=== PATIENT | female | born 1985 | race Caucasian/White ===

== ENCOUNTER 2019-09-10 13:04 | Emergency (ER) | payer MEDICAID, SELFPAY ==
--- NOTE | ~2019-09-10 | XR_ITS ---
EXAMINATION: XR finger 1st RT min 2V INDICATION: Right first finger swelling and pain. TECHNIQUE: Three views of the right first finger are obtained. COMPARISON: 07/17/2019 FINDINGS: No fracture is identified. There is subtle flexion at the interphalangeal joint with extens ion at the metacarpophalangeal joint. Mild soft tissue swelling is present. IMPRESSION: 1. Subtle flexion at the interphalangeal joint with extension at the metacarpophalangeal joint which could reflect tendinous injury. Reviewed, dictated and finalized at location [facility]. [address] [facility] IMPRESSION: 1. Subtle flexion at the interphalangeal joint with extension at the metacarpop halangeal joint which could reflect tendinous injury.
[2019-09-10 13:13] VITALS: BP 127/84; PULSE 79; RESP 16; TEMP 36.9; O2SAT 100
--- NOTE | 2019-09-10 13:43 | ED.EXTPRO ---
HPI - Extremity Problem General Chief complaint: Extremity Injury, Upper Stated complaint: INJURED R THUMB Time Seen by Provider: 09/10/19 13:34 Source: patient and RN notes reviewed Mode of arrival: ambulatory Limitations: no limitations History of Present Illness HPI Narrative: Patient presents today complaining of pain to her right thumb. States she believes that it is out of place. In June, she states that her thumb was dislocated and she was seen in [facility] where it was reduced. Subsequently, due to pain, she presented at [facility] on 07/22/2019. An x-ray was done at that time and patient was told that she had arthritis but no other acute abnormalities. 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 Patient complains that she has swelling on and off since the initial injury. Denies any current acute injury. Believes that she may need steroids for her current condition. She has been taking ibuprofen for pain without relief. MD Complaint: extremity pain and extremity swelling Related Data Home Medications Medication Instructions Recorded Confirmed acetaminophen [Tylenol] 325 mg PO ONCE PRN 09/10/19 09/10/19 ibuprofen 200 mg PO Q6H PRN 09/10/19 09/10/19 melatonin 10 mg PO HS PRN 09/10/19 09/10/19 Allergies Allergy/AdvReac Type Severity Reaction Status Date / Time doxycycline Allergy Mild Unknown Verified 09/10/19 13:23 clavulanic acid Allergy Unknown Headache Verified 09/10/19 13:23 sumatriptan AdvReac Mild SWEAT Verified 09/10/19 13:23 PROFUSELY AND FEEL LIKE HAVING A HEART ATTACK. amoxicillin [From Augmentin] AdvReac Headache Verified 09/10/19 13:23 BETALACTAMASEIN Allergy Mild Migraine Uncoded 09/10/19 13:23 Review of Systems Review of Systems: Narrative: CONSTITUTIONAL: Denies body aches, fever, chills, or sweats. EYES: Denies visual changes, redness, or discharge. ENT: Denies rhinorrhea, congestion, sore throat, or otalgia. CARDIOVASCULAR: Denies chest pain, palpitations, or edema. RESPIRATORY: Denies cough or dyspnea. GASTROINTESTINAL: Denies abdominal pain, nausea, vomiting, or diarrhea. GENITOURINARY: Denies dysuria or hematuria. SKIN: Denies rash, itching, or wounds. MUSCULOSKELETAL: Denies back pain, or myalgia.+ Right thumb pain and swelling NEUROLOGIC: Denies headache, numbness, tingling, or weakness. PSYCH: Denies depression or anxiety. PMFSH Comments At time of signature, I have reviewed and agree with nursing past medical, surgical, social and family history unless otherwise noted. Please see nursing chart for further information. There is no relevant family history pertinent to the presenting complaint Exam Narrative: Exam Narrative: GENERAL: Well-appearing, well-nourished, and in no acute distress. HEAD: Normocephalic, atraumatic. EYES: EOMI. No redness or drainage. ENT: Mucous membranes pink and moist. NECK: Normal AROM. CHEST: No respiratory distress. EXTREMITIES: Right thumb: No edema, erythema, or ecchymosis noted. Tenderness to base of thumb. Almost full AROM noted. States she is unable to fully extend her DIP, but it seems fully extended without being hyperextended. Distal sensation intact. Capillary refill normal. No abnormal warmth. SKIN: Warm, dry, no rash. NEURO: No focal deficits. Alert and oriented x3. Gait steady. PSYCH: Normal affect. No signs of depression or anxiety. Course Vital Signs Vital signs: Vital Signs Temperature 98.4 F 09/10/19 13:13 Pulse Rate 79 09/10/19 13:13 Respiratory Rate 16 09/10/19 13:13 Blood Pressure 127/84 09/10/19 13:13 Pulse Oximetry 100 09/10/19 13:13 Temperature 98.4 F 09/10/19 13:13 Pulse Rate 79 09/10/19 13:13 Respiratory Rate 16 09/10/19 13:13 Blood Pressure 127/84 09/10/19 13:13 Pulse Oximetry 100 09/10/19 13:13 Reviewed. Pt has been instructed to follow up with her PCP regarding her elevated blood pressu
== END 2019-09-10 14:13 | disposition home or self-care (01) ==
PROVIDERS: Emergency Provider Nurse Practitioner; PCP Internal Medicine
DX: M79.644 Pain in right finger(s) (principal); J45.909 Unspecified asthma, uncomplicated
CPT/HCPCS: 73140; 99213; G0463

== ENCOUNTER 2020-01-25 18:27 | Emergency (ER) | payer OTHER, SELFPAY ==
[2020-01-25 18:39] VITALS: BP 111/81; PULSE 81; RESP 20; TEMP 36.8; O2SAT 98
--- NOTE | 2020-01-25 19:20 | ED.GENADULT ---
HPI - General Adult General Chief complaint: Unspecified Stated complaint: LEG TREMORS Time Seen by Provider: 01/25/20 18:33 History of Present Illness HPI narrative: Patient is 34 y/o female complaining of severe, bilat leg shaking starting about 30 minutes prior to arrival. She states that she was cleaning the floor when the shaking started. She did not lose consciousness. There is no known alleviating or exacerbating factor. The shaking resolved spontaneously after about 10 minutes. Related Data Home Medications Medication Instructions Recorded Confirmed acetaminophen [Tylenol] 325 mg PO ONCE PRN 09/10/19 09/10/19 ibuprofen 200 mg PO Q6H PRN 09/10/19 09/10/19 melatonin 10 mg PO HS PRN 09/10/19 09/10/19 Allergies Allergy/AdvReac Type Severity Reaction Status Date / Time doxycycline Allergy Mild Unknown Verified 09/10/19 13:23 clavulanic acid Allergy Unknown Headache Verified 09/10/19 13:23 sumatriptan AdvReac Mild SWEAT Verified 09/10/19 13:23 PROFUSELY AND FEEL LIKE HAVING A HEART ATTACK. amoxicillin [From Augmentin] AdvReac Headache Verified 09/10/19 13:23 BETALACTAMASEIN Allergy Mild Migraine Uncoded 09/10/19 13:23 Review of Systems Constitutional: Constitutional: Denies chills, Denies fever(s), Denies headache(s) and Denies weakness Eyes: Eyes: Denies blurry vision ENT: Denies headache(s) and Denies neck pain Cardiovascular: Cardiovascular: Denies chest pain and Denies dyspnea Respiratory: Respiratory: Denies cough and Denies dyspnea Gastrointestinal: Gastrointestinal: Denies abdominal pain, Denies diarrhea, Denies nausea and Denies vomiting Genitourinary: Genitourinary: Denies hematuria and Denies dysuria Musculoskeletal: Musculoskeletal: Denies back pain and Denies neck pain Neurologic: Denies headache(s) and Denies weakness Comments: leg shaking PMFSH Past Medical History Medical History Anxiety Depression Social History Social History Gender identity (if verbalized by the patient): Female Exam Const: General: no acute distress and well developed Orientation/consciousness: oriented to person, oriented to place, oriented to time and patient oriented x3 HENMT: Head: normocephalic Ears: external ears normal General nose exam: Normal external nose present Eyes: General: appearance normal, both eyes and all related structures Conjunctivae: conjunctivae normal Neck: Neck: normal visual inspection and full ROM Chest: Chest palpation & inspection: normal inspection of the chest and no tenderness Resp: Effort & Inspection: normal respiratory effort Auscultation: clear to auscultation bilaterally Cardio: Rate: regular rate Rhythm: regular rhythm GI: GI Palp: No abdominal tenderness and Yes Soft to palpation Skin: General skin exam: normal color and turgor normal Neuro: General: oriented to person, oriented to place, oriented to time and patient oriented x3 Cranial nerves: Yes CN's II-XII intact bilaterally Cognition (Neuro): normal cognition Speech: normal speech Motor exam (neuro): 5/5 motor strength present throughout Sensory Exam: normal sensation Coordination: [id number] test normal and [id number] test normal Extrem: General: normal to inspection, full ROM and no pedal edema Psych: Appearance: grossly normal Mental Status: mental status grossly normal Affect: normal affect Course Vital Signs Vital signs: Vital Signs Temperature 36.8 C 01/25/20 18:39 Pulse Rate 81 01/25/20 18:39 Respiratory Rate 20 01/25/20 18:39 Blood Pressure 111/81 01/25/20 18:39 Pulse Oximetry 98 01/25/20 18:39 Temperature 36.8 C 01/25/20 18:39 Pulse Rate 62 01/25/20 20:12 Respiratory Rate 18 01/25/20 20:12 Blood Pressure 132/70 01/25/20 20:12 Pulse Oximetry 98 01/25/20 20:12 Medical Decision Making Vital Signs
[2020-01-25 19:31] LABS: Add Urine Microscopic? YES; Appearance Urine Cloudy (Clear); Bacteria Urine 4+ /hpf; Bilirubin Urine Negative (Negative); Blood Urine Negative (Negative); Color Urine Yellow (Yellow); Glucose Urine UA Negative (Negative); Ketones Urine Trace mg/dL (Negative); Leukocyte Esterase Ur Negative LEU/UL (Negative); Mucus Urine Heavy /lpf; Nitrate Urine Negative (Negative); Protein Urine 1+ mg/dL (Negative); Specific Grav Ur 1.027 (1.001-1.035); Squamous Epithelial Cell Urine Many /hpf (Few); Urobilinogen Urine Negative mg/dL (<2.0)
[2020-01-25 19:41] LABS: Basophils Absolute Auto 0.1 K/mm3 (0.0-0.1); Basophils Percent Auto 0.6 % (0.2-1.2); Eosinophils Absolute Auto 0.1 K/mm3 (0-0.3); Eosinophils Percent Auto 1.3 % (0-4.4); Hematocrit 34.9 % (37.0-47.0); Hemoglobin 10.8 g/dL (12.0-15.0); Immature Granulocyte Absolute 0.02 K/mm3 (0.00-0.031); Immature Granulocyte Percent A 0.3 % (0-0.5); Lymphocytes Absolute Auto 3.02 K/mm3 (0.9-3.2); Lymphocytes Percent Auto 38.3 % (18.3-44.2); Mean Corpuscular HGB Conc 30.9 g/dl (32-36); Mean Corpuscular Hemoglobin 24.9 pg (26-34); Mean Corpuscular Volume 80.6 fl (80-100); Mean Platelet Volume 10.6 fl (7.4-10.4); Monocytes Absolute Auto 0.8 K/mm3 (0.1-0.6); Monocytes Percent Auto 9.5 % (2.6-8.5); Platelet Count Result 254 k/mm3 (150-375); Red Blood Count 4.33 M/mm3 (4.2-5.4); Red Cell Distribution Width 14.1 % (11.5-14.5); White Blood Count 7.9 K/mm3 (4.5-10.0)
[2020-01-25 19:51] LABS: Blood Urea Nitrogen 12 mg/dL (7-17); Carbon Dioxide 23 mmol/L (22-30); Chloride 110 mmol/L (98-107); Estimated CRCL calculation 89 ml/min; Estimated Glomerular Filt Rate > 60; Glucose 108 mg/dL (65-105); Potassium 3.4 mmol/L (3.4-5.0); Sodium 140 mmol/L (137-145)
[2020-01-25 20:12] VITALS: BP 132/70; PULSE 62; RESP 18; O2SAT 98
== END 2020-01-25 20:13 | disposition home or self-care (01) ==
PROVIDERS: Emergency Provider Emergency Medicine; PCP Internal Medicine
DX: R25.1 Tremor, unspecified (principal)
CPT/HCPCS: 36415; 80048; 81001; 81025; 85025; 87086; 87088; 99283

== ENCOUNTER 2020-05-31 20:37 | Emergency (ER) | payer OTHER, SELFPAY ==
--- NOTE | ~2020-05-31 | XR_ITS ---
EXAMINATION: XR finger 1st RT min 2V DATE: 05/31/2020 21:38 INDICATION: Ringing fluid from a postoperative wound at the right first digit TECHNIQUE: Dorsal palmar, lateral and oblique views of the right first digit were obtained COMPARISON: 09/10/19 and 07/17/2019 FINDINGS: Alignment is normal. No fracture. Mild osteoarthritis with unchanged slight nonuniform joint space na rrowing at the right first metacarpophalangeal joint. Diffuse soft tissue swelling about the thumb. IMPRESSION: 1. No acute osseous abnormality. Reviewed, dictated and finalized at location A.
[2020-05-31 20:39] VITALS: BP 115/76; PULSE 87; RESP 17; TEMP 36.3; O2SAT 100
--- NOTE | 2020-05-31 21:02 | ED.RECABL ---
HPI - Recheck/Abnormal Lab/Rx General Chief Complaint: Recheck/Abnormal Lab/Rx <Sofi Sommer MD - Last Filed: 05/31/20 21:03> Stated Complaint: post surgery infection <Sofi Sommer MD - Last Filed: 05/31/20 21:03> Time Seen by Provider: 05/31/20 21:02 <Sofi Sommer MD - Last Filed: 05/31/20 21:03> History of Present Illness HPI narrative: Patient is a 34-year-old female who presents ER with dehiscence of the right thumb surgical site. Patient reports she had a trigger finger repair 4 weeks ago at [facility]. She had been doing well. Couple days ago she noticed her wound was trying to open up. She contacted her surgeon's office got back to her the day telling her they were not concerned at that time. She reports since then she started weeping a constant flow of yellowish and sometimes white fluid. Note thick fluid or green discharge. The affected thumb is slightly swollen. No erythema to the hand/thumb, no lymphangitic streaking. No pain in the joint. No fevers or chills or sweats. <Dain Andrews MD - Last Filed: 05/31/20 22:32> Related Data Home Medications: Home Medications Medication Instructions Recorded Confirmed albuterol sulfate [ProAir HFA] 1 - 2 inh INHALATION Q4-6H PRN 05/31/20 citalopram 20 mg PO DAILY 05/31/20 ibuprofen 600 mg PO Q6H PRN 05/31/20 melatonin 10 mg PO HS PRN 05/31/20 simvastatin 40 mg PO DAILY 05/31/20 trazodone 50 mg PO HS 05/31/20 <Sofi Sommer MD - Last Filed: 05/31/20 21:03> Allergies/Adverse Reactions: Allergies Allergy/AdvReac Type Severity Reaction Status Date / Time doxycycline Allergy Mild Unknown Verified 05/31/20 20:38 clavulanic acid Allergy Unknown Headache Verified 05/31/20 20:38 sumatriptan AdvReac Mild SWEAT Verified 05/31/20 20:38 PROFUSELY AND FEEL LIKE HAVING A HEART ATTACK. BETALACTAMASEIN Allergy Unknown Migraine Uncoded 05/31/20 21:08 <Sofi Sommer MD - Last Filed: 05/31/20 21:03> Review of Systems Review of Systems: All systems reviewed & are unremarkable except as noted in HPI and below <Dain Andrews MD - Last Filed: 05/31/20 22:32> Constitutional: Constitutional: Denies chills and Denies fever(s) <Dain Andrews MD - Last Filed: 05/31/20 22:32> Musculoskeletal: Musculoskeletal: Denies arthralgias and Denies joint swelling <Dain Andrews MD - Last Filed: 05/31/20 22:32> Comments: Right thumb swelling and wound drainage <Dain Andrews MD - Last Filed: 05/31/20 22:32> Integumentary/Breasts: Comments: Open skin wound right thumb base <Dain Andrews MD - Last Filed: 05/31/20 22:32> Neurologic: Denies focal weakness and Denies numbness <Dain Andrews MD - Last Filed: 05/31/20 22:32> PMFSH Past Medical History Medical History: Medical History (Updated 01/26/20 @ 00:00 by Vicky Montero) Anxiety Depression <Sofi Sommer MD - Last Filed: 05/31/20 21:03> Surgical History Surgical History: Surgical History (Updated 05/31/20 @ 22:25 by Dain Andrews MD) S/P trigger finger release <Sofi Sommer MD - Last Filed: 05/31/20 21:03> Social History Social History: Social History (Updated 05/31/20 @ 22:25 by Dain Andrews MD) Smoking status: Never smoker Gender identity (if verbalized by the patient): Female <Sofi Sommer MD - Last Filed: 05/31/20 21:03> Exam Narrative: Exam Narrative: GENERAL: Well-appearing, well-nourished, and in no acute distress. HEAD: Normocephalic, atraumatic. EXTREMITIES: Focused exam of the right hand reveals mildly s of the first MCP shows small area of wound dehiscence no larger than 1/2 cm. There is serous and occasionally milky fluid that is draining from it. There is no erythema or tenderness. Range of motion is preserved. SKIN: Warm, dry, no rash. NEURO: No focal deficits. Alert and oriented x3. PSYCH: Normal mood and affect. <An
[2020-05-31 22:01] LABS: Anion Gap 7 mmol/L (8-16); Blood Urea Nitrogen 10 mg/dL (7-17); CRP < 0.5 mg/dL (<1.0); Calcium 9.1 mg/dL (8.4-10.2); Carbon Dioxide 25 mmol/L (22-30); Chloride 107 mmol/L (98-107); Estimated CRCL calculation 64 ml/min; Estimated Glomerular Filt Rate > 60; Glucose 100 mg/dL (65-105); Potassium 3.9 mmol/L (3.4-5.0); Sodium 139 mmol/L (137-145)
[2020-05-31 22:04] LABS: Basophils Absolute Auto 0.1 K/mm3 (0.0-0.1); Basophils Percent Auto 0.5 % (0.2-1.2); Eosinophils Absolute Auto 0.1 K/mm3 (0-0.3); Eosinophils Percent Auto 0.9 % (0-4.4); Hematocrit 39.8 % (37.0-47.0); Hemoglobin 12.7 g/dL (12.0-15.0); Immature Granulocyte Absolute 0.03 K/mm3 (0.00-0.031); Immature Granulocyte Percent A 0.3 % (0-0.5); Lymphocytes Absolute Auto 3.04 K/mm3 (0.9-3.2); Lymphocytes Percent Auto 27.5 % (18.3-44.2); Mean Corpuscular HGB Conc 31.9 g/dl (32-36); Mean Corpuscular Hemoglobin 26.9 pg (26-34); Mean Corpuscular Volume 84.3 fl (80-100); Mean Platelet Volume 10.8 fl (7.4-10.4); Monocytes Absolute Auto 0.9 K/mm3 (0.1-0.6); Monocytes Percent Auto 8.3 % (2.6-8.5); Neutrophils Absolute Auto 6.9 K/mm3 (1.3-6.7); Neutrophils Percent Auto 62.5 % (45.5-73.1); Platelet Count Result 303 k/mm3 (150-375); Red Blood Count 4.72 M/mm3 (4.2-5.4); White Blood Count 11.1 K/mm3 (4.5-10.0)
[2020-05-31 22:46] LABS: Erythrocyte Sedimentation Rate 12 mm/hr (0-20)
--- NOTE | 2020-05-31 22:46 | ED.GENADULT ---
HPI - General Adult General Chief complaint: Recheck/Abnormal Lab/Rx Stated complaint: post surgery infection Time Seen by Provider: 05/31/20 21:02 History of Present Illness HPI narrative: Patient is a 34-year-old female who presents ER with dehiscence of right thumb wound. Patient had a surgery 4 [facility] ago at [facility] for [facility] finger. Couple days ago dehisced and then it has started draining yellow/white fluid. No fevers or chills. No redness to the thumb or lymphangitic streaking. The thumb is mildly swollen. She has range of motion intact. Related Data Home Medications Medication Instructions Recorded Confirmed albuterol sulfate [ProAir HFA] 1 - 2 inh INHALATION Q4-6H PRN 05/31/20 citalopram 20 mg PO DAILY 05/31/20 ibuprofen 600 mg PO Q6H PRN 05/31/20 melatonin 10 mg PO HS PRN 05/31/20 simvastatin 40 mg PO DAILY 05/31/20 trazodone 50 mg PO HS 05/31/20 Allergies Allergy/AdvReac Type Severity Reaction Status Date / Time doxycycline Allergy Mild Unknown Verified 05/31/20 20:38 clavulanic acid Allergy Unknown Headache Verified 05/31/20 20:38 sumatriptan AdvReac Mild SWEAT Verified 05/31/20 20:38 PROFUSELY AND FEEL LIKE HAVING A HEART ATTACK. BETALACTAMASEIN Allergy Unknown Migraine Uncoded 05/31/20 21:08 Review of Systems Constitutional: Constitutional: Denies chills and Denies fever(s) Musculoskeletal: Musculoskeletal: Denies arthralgias and Denies joint swelling Comments: Right thumb swelling Integumentary/Breasts: Skin/Breast: Denies erythema, Denies rash and Reports skin ulcer Neurologic: Denies focal weakness and Denies numbness PMFSH Past Medical History Medical History (Updated 05/31/20 @ 22:51 by Dain Andrews MD) Anxiety Depression Surgical History Surgical History (Updated 05/31/20 @ 22:25 by Dain Andrews MD) S/P trigger finger release Social History Social History (Updated 05/31/20 @ 22:25 by Dain Andrews MD) Smoking status: Never smoker Gender identity (if verbalized by the patient): Female Exam Narrative: Exam Narrative: GENERAL: Well-appearing, well-nourished, and in no acute distress. HEAD: Normocephalic, atraumatic. EXTREMITIES: Focused exam of the right hand reveals dehisced wound of the right thumb at the MCP palmar aspect that is no larger than half a centimeter. Yellow-white watery discharge can be expressed. Mild swelling to the thumb. No cellulitis or lymphangitic streaking. No tenderness. Range of motion intact. SKIN: Warm, dry, no rash. Wound as noted above. NEURO: No focal deficits. Alert and oriented x3. PSYCH: Normal mood and affect. Course Course Emergency Course: Informed of results. Discharge home. Will start on Keflex. Needs contact her surgeon to arrange close follow-up. Vital Signs Vital signs: Vital Signs Temperature 97.3 F L 05/31/20 20:39 Pulse Rate 87 05/31/20 20:39 Respiratory Rate 17 05/31/20 20:39 Blood Pressure 115/76 05/31/20 20:39 Pulse Oximetry 100 05/31/20 20:39 Temperature 97.3 F L 05/31/20 20:39 Pulse Rate 87 05/31/20 20:39 Respiratory Rate 17 05/31/20 20:39 Blood Pressure 115/76 05/31/20 20:39 Pulse Oximetry 100 05/31/20 20:39 Medical Decision Making Vital Signs Vital Signs: Vital Signs Temperature 97.3 F L 05/31/20 20:39 Pulse Rate 87 05/31/20 20:39 Respiratory Rate 17 05/31/20 20:39 Blood Pressure 115/76 05/31/20 20:39 Pulse Oximetry 100 05/31/20 20:39 Temperature 97.3 F L 05/31/20 20:39 Pulse Rate 87 05/31/20 20:39 Respiratory Rate 17 05/31/20 20:39 Blood Pressure 115/76 05/31/20 20:39 Pulse Oximetry 100 05/31/20 20:39 Lab Data Result diagrams: 05/31/20 21:40 05/31/20 21:40 Labs: Lab Results 05/31/20 05/31/20 Range/Units 21:40 21:40 WBC 11.1 H (4.5-10.0) K/mm3 RBC 4.72 (4.2-5.4) M/mm3 Hgb 12.7 (12.0-15.0) g/dL Hct 39.8 (37.0-47.0)
[2020-05-31] MEDS: CEPHALEXIN 500 MG CAPSULE PO (22:52)
[2020-05-31 23:00] VITALS: BP 111/69; PULSE 87; RESP 16; TEMP 36.4; O2SAT 100
== END 2020-05-31 23:02 | disposition home or self-care (01) ==
PROVIDERS: Emergency Medicine; Emergency Provider Emergency Medicine; PCP Internal Medicine
DX: T81.31XA Disruption of external operation (surgical) wound, not elsewhere classified, initial encounter (principal); T81.41XA Infection following a procedure, superficial incisional surgical site, initial encounter; F41.9 Anxiety disorder, unspecified; F32.9 Major depressive disorder, single episode, unspecified
CPT/HCPCS: 36415; 73140; 80048; 85025; 85652; 86140; 87070; 87147; 87186; 87205; 99283; A9270

== ENCOUNTER 2021-11-24 15:05 | Emergency (ER) | payer OTHER, SELFPAY ==
--- NOTE | ~2021-11-24 | CT_ITS ---
EXAMINATION: CT abdomen pelvis w con DATE: 11/24/2021 16:32 INDICATION: lower abdominal pain, possible obstruction TECHNIQUE: Computed tomography (CT) of the abdomen and pelvis was performed without intravenous contr ast. The dose-length product was 232.63 mGy-cm. COMPARISON: None FINDINGS: Lower thorax: Unremarkable. Liver: Right lobe cyst/meningioma. Biliary/Gallbladder: Gallbladder is absent. Mild biliary dilation, likely on the basis of reservoir e ffect. Spleen: Normal. Pancreas: No mass or duct dilation. Adrenals:No mass. Kidneys: No mass, stone, or hydronephrosis. GI tract: Chronic fat density wall thickening involving the cecum, ascending colon, and transverse co emmy. Water density wall thickening affecting the descending colon, sigmoid, and rectum. Appendix surg ically absent Mesentery/Peritoneum: No ascites, mass, or free air. Retroperitoneum: No mass. Pelvis: Abnormal morphology of the endometrial cavity with apparent bandlike constriction of the cavi ty between the uterine horns and body, otherwise the organs are within normal limits. Bones/Soft Tissues: Soft tissues and body wall unremarkable. No acute osseous finding. Additional Findings: None. IMPRESSION: Acute inflammatory versus infectious colitis. Given extensive chronic submucosal fat deposition, infl ammatory bowel disease should be considered in the differential. Possible uterine synechia, consider referral for outpatient pelvic sonohysterography. Reviewed, dictated and finalized at location K. IMPRESSION: Acute inflammatory versus infectious colitis. Given extensive chronic submucosa l fat deposition, inflammatory bowel disease should be considered in the differ ential. Possible uterine synechia, consider referral for outpatient pelvic sono hysterography.
[2021-11-24 15:08] VITALS: BP 124/81; PULSE 89; RESP 20; TEMP 35.9; O2SAT 100
--- NOTE | 2021-11-24 15:27 | ED.ABDPAIN ---
HPI - Abdominal Pain General Chief Complaint: Abdominal Pain Stated Complaint: abd pain Time Seen by Provider: 11/24/21 15:12 Source: patient and RN notes reviewed Mode of arrival: ambulatory Limitations: no limitations History of Present Illness HPI narrative: This is a 36 year old female who presents for evaluation of abdominal pain and constipation. Patient developed lower abdominal pain 2 days ago. She describes pain has cramping in waves. She is concerned she has partial obstruction. She has not had a bowel movement in 1 week, and she normal has bowel movement every other day. She tooks 4 tabs of dulcolax yesterday, and she is passing small out of loose stool today. She has nausea but denies vomiting or fever. She rates pain as 7/10. Related Data Home Medications Medication Instructions Recorded Confirmed albuterol sulfate [ProAir HFA] 1 - 2 inh INHALATION Q4-6H PRN 05/31/20 citalopram 20 mg PO DAILY 05/31/20 ibuprofen 600 mg PO Q6H PRN 05/31/20 melatonin 10 mg PO HS PRN 05/31/20 simvastatin 40 mg PO DAILY 05/31/20 trazodone 50 mg PO HS 05/31/20 Allergies Allergy/AdvReac Type Severity Reaction Status Date / Time doxycycline Allergy Mild Unknown Verified 11/24/21 15:16 clavulanic acid Allergy Unknown Headache Verified 11/24/21 15:16 sumatriptan AdvReac Mild SWEAT Verified 11/24/21 15:16 PROFUSELY AND FEEL LIKE HAVING A HEART ATTACK. BETALACTAMASEIN Allergy Unknown Migraine Uncoded 11/24/21 15:16 Review of Systems Review of Systems: All systems reviewed & are unremarkable except as noted in HPI and below PMFSH Past Medical History Medical History (Updated 11/24/21 @ 18:05 by Kelly Clark MD) Anxiety Depression Surgical History Surgical History (Updated 11/24/21 @ 15:38 by Kelly Clark MD) H/O bilateral salpingectomy History of appendectomy Hx of cholecystectomy S/P trigger finger release Social History Social History (Updated 05/31/20 @ 22:25 by Dain Andrews MD) Smoking status: Never smoker Gender identity (if verbalized by the patient): Female Exam Const: General: no acute distress and alert Orientation/consciousness: patient oriented x3 Eyes: EOM: EOMs intact bilaterally Chest: Chest palpation & inspection: normal inspection of the chest Resp: Effort & Inspection: normal respiratory effort and no retractions Auscultation: clear to auscultation bilaterally Cardio: Rate: regular rate Rhythm: regular rhythm Heart sounds: no murmurs GI: GI Palp: Yes Soft to palpation, Yes Tenderness to palpation present (GI) (suprapubic), No Guarding due to palpation present (GI) and No Rigid due to palpation Auscultation: normal bowel sounds Back/Spine/Pelvis: Back: no CVA tenderness Skin: General skin exam: normal color Rashes: no rashes Neuro: General: patient oriented x3, moves all extremities and CN's II-XI intact bilaterally Extrem: General: normal to inspection Psych: Mental Status: mental status grossly normal Affect: normal affect Course Reevaluation(s) Reevaluation #1: Patient is comfortable. She reports being told she has IBS but never IBD. I Discussed CT shows colitis and she will need evaluation of inflammatory bowel disease. She is comfortable with discharge home and follow up . Date: 11/24/21 Time: 18:00 Vital Signs Vital signs: Vital Signs Temperature 96.7 F L 11/24/21 15:08 Pulse Rate 89 11/24/21 15:08 Respiratory Rate 20 11/24/21 15:08 Blood Pressure 124/81 11/24/21 15:08 Pulse Oximetry 100 11/24/21 15:08 Temperature 96.7 F L 11/24/21 15:08 Pulse Rate 78 11/24/21 18:16 Respiratory Rate 18 11/24/21 18:16 Blood Pressure 125/70 11/24/21 18:16 Pulse Oximetry 100 11/24/21 18:16 MDM - Abdominal Pain Lab Data Attestation: I reviewed the patient's lab results. Result diagrams: 11/24/21 15:39 11/24/21 15:39 Labs: Lab Results 11/24/21
[2021-11-24 15:45] LABS: Basophils Percent Auto 0.5 % (0.2-1.2); Eosinophils Absolute Auto 0.1 K/mm3 (0-0.3); Eosinophils Percent Auto 1.8 % (0-4.4); Hematocrit 47.5 % (37.0-47.0); Hemoglobin 15.3 g/dL (12.0-15.0); Immature Granulocyte Absolute 0.01 K/mm3 (0.00-0.031); Immature Granulocyte Percent A 0.2 % (0-0.5); Lymphocytes Absolute Auto 2.88 K/mm3 (0.9-3.2); Mean Corpuscular HGB Conc 32.2 g/dl (32-36); Mean Corpuscular Hemoglobin 31.1 pg (26-34); Mean Corpuscular Volume 96.5 fl (80-100); Monocytes Absolute Auto 0.7 K/mm3 (0.1-0.6); Monocytes Percent Auto 10.5 % (2.6-8.5); Neutrophils Absolute Auto 2.8 K/mm3 (1.3-6.7); Platelet Count Result 240 k/mm3 (150-375); Red Blood Count 4.92 M/mm3 (4.2-5.4); Red Cell Distribution Width 11.9 % (11.5-14.5); White Blood Count 6.6 K/mm3 (4.5-10.0)
[2021-11-24 15:55] LABS: Alanine Aminotransferase 101 U/L (4-35); Albumin Level 4.4 g/dL (3.5-5.1); Alkaline Phosphatase 129 U/L (38-126); Anion Gap 10 mmol/L (8-16); Aspartate Amino Transferase 43 U/L (14-36); Bilirubin,Total 0.5 mg/dL (0.2-1.3); Blood Urea Nitrogen 8 mg/dL (7-17); Carbon Dioxide 26 mmol/L (22-30); Chloride 103 mmol/L (98-107); Estimated CRCL calculation 118 ml/min; Estimated Glomerular Filt Rate > 60; Glucose 93 mg/dL (65-110); Lipase 63 U/L (23-300); Potassium 3.2 mmol/L (3.4-5.0); Sodium 139 mmol/L (137-145)
[2021-11-24 16:02] LABS: Appearance Urine Clear (Clear); Bilirubin Urine Negative (Negative); Blood Urine 1+ (Negative); Color Urine Yellow (Yellow); Glucose Urine UA Negative (Negative); Ketones Urine 1+ mg/dL (Negative); Leukocyte Esterase Ur Negative LEU/UL (Negative); Nitrate Urine Negative (Negative); Protein Urine Negative (Negative); Specific Grav Ur 1.015 (1.001-1.035); Urobilinogen Urine 0.2 mg/dL (<2.0)
[2021-11-24 16:18] LABS: Bacteria Urine Trace /hpf; Mucus Urine Rare /lpf; Squamous Epithelial Cell Urine Rare /hpf (Few); WBC Urine 0-3 /hpf
[2021-11-24 16:23] LABS: Add Urine Microscopic? YES
[2021-11-24 18:16] VITALS: BP 125/70; PULSE 78; RESP 18; O2SAT 100
== END 2021-11-24 18:18 | disposition home or self-care (01) ==
PROVIDERS: Emergency Provider General Practice; PCP Internal Medicine
DX: K52.9 Noninfective gastroenteritis and colitis, unspecified (principal); F41.9 Anxiety disorder, unspecified; F32.A Depression, unspecified
CPT/HCPCS: 36415; 74177; 80053; 81001; 81025; 83690; 85025; 99284; Q9967

== ENCOUNTER 2022-01-04 09:16 | Outpatient (CLI) | payer OTHER, SELFPAY ==
[2022-01-04 09:47] LABS: Hematocrit 44.6 % (37.0-47.0); Hemoglobin 14.6 g/dL (12.0-15.0); Mean Corpuscular HGB Conc 32.7 g/dl (32-36); Mean Corpuscular Hemoglobin 31.3 pg (26-34); Mean Corpuscular Volume 95.5 fl (80-100); Platelet Count Result 215 k/mm3 (150-375); Red Blood Count 4.67 M/mm3 (4.2-5.4); Red Cell Distribution Width 11.8 % (11.5-14.5); White Blood Count 6.5 K/mm3 (4.5-10.0)
== END 2022-01-04 09:17 | disposition home or self-care (01) ==
LOC: ANHSURGERY 09:19
PROVIDERS: PCP Internal Medicine; Visit Provider Student in an Organized Health Care Education/Training Program
DX: Z01.812 Encounter for preprocedural laboratory examination (principal); R10.2 Pelvic and perineal pain
CPT/HCPCS: 36415; 85027; 86850; 86900; 86901

== ENCOUNTER 2022-01-06 00:57 | Day surgery (SDC) | payer OTHER, SELFPAY ==
[2022-01-03 08:42] VITALS: BMI 23.3
--- NOTE | 2022-01-03 09:12 | SUR.PREOP ---
Report to the Outpatient Waiting Room, entrance under the green pavilion located off [facility], at time on date . OR Time: . - You and your visitor will be asked a series of questions to screen for COVID 19 for your protection. - Only one visitor is allowed at this time. - The patient visitor is requested to leave or wait in car when not with patient. - A mask is required within the hospital. Patients may have clear liquids (water, carbonated beverages, clear teas, apple juice) until 3 hours prior to surgery with a maximum of 20 ounces. - No food from midnight until time of surgery - Infants may have breast milk until 4 hours before surgery, infant formula 6 hours prior to surgery. - Children will be allowed to drink immediately following surgery. If applicable, please bring a bottle or sippy cup to assist with drinking. Juice, water, soda, and popsicles are readily available. For infants on formula, please bring formula the day of surgery. Pacifiers are allowed. Take the following medications with a SIP of water the morning of surgery: Medications to discontinue per physician Date to take last dose Please no make-up, nail sami, hairspray, perfume, deodorant, or body powder the day of surgery. No jewelry (including any body piercings) or valuables the day of surgery, leave them at home. Please take a shower or bath the night before, or the morning of, surgery with an antibacterial soap. Wear comfortable, loose fitting clothing. Children are encouraged to wear pajamas. - Jewelry must be removed prior to entering the operating room. Rings and piercings that are not removed may be cut off. - The hospital will not accept responsibility for valuables. - Please leave all valuables, including medications, at home the day of surgery. If you are going home after surgery, a licensed train driver must drive you home. - NO public transportation without another adult. - We recommend that an adult stay with you for 24 hours following discharge. - We also recommend that you do not drive, make important decision, drink alcoholic beverages, or take any drugs that were not prescribed by your health care provider for at least 24 hours after your discharge time. For Pediatric surgeries, we recommend two adults accompany the child home (only one inside the building at this time). Follow any additional instructions given to you from your surgeon. If you or anyone in your household have experienced Covid symptoms in the past week, please notify your surgeon or the nurse liaison at the phone number below for possible testing. Telephone instructions given to and asked if any additional questions and then verbalized understanding. Patient advised to call surgeon office or pre surgery nurse liaison [phone] if any additional questions.
--- NOTE | 2022-01-03 09:12 | SUR.PREOP ---
Report to the Outpatient Waiting Room, entrance under the green pavilion located off [facility], at time __1000____ on date _01/06/22_ OR Time: _1200 . - You and your visitor will be asked a series of questions to screen for COVID 19 for your protection. - Only one visitor is allowed at this time. - The patient visitor is requested to leave or wait in car when not with patient. - A mask is required within the hospital. Patients may have clear liquids (water, carbonated beverages, clear teas, apple juice) until 3 hours prior to surgery with a maximum of 20 ounces. - No food from midnight until time of surgery - Infants may have breast milk until 4 hours before surgery, formula 6 hours prior to surgery. - Children will be allowed to drink immediately following surgery. If applicable, please bring a bottle or sippy cup to assist with drinking. Juice, water, soda, and popsicles are readily available. For infants on formula, please bring formula the day of surgery. Pacifiers are allowed. Take the following medications with a SIP of water the morning of surgery: Medications to discontinue per physician Date to take last dose Please no make-up, nail kinyarwanda, hairspray, perfume, deodorant, or body powder the day of surgery. No jewelry (including any body piercings) or valuables the day of surgery, leave them at home. Please take a shower or bath the night before, or the morning of, surgery with an antibacterial soap. Wear comfortable, loose fitting clothing. Children are encouraged to wear pajamas. - Jewelry must be removed prior to entering the operating room. Rings and piercings that are not removed may be cut off. - The hospital will not accept responsibility for valuables. - Please leave all valuables, including medications, at home the day of surgery. If you are going home after surgery, a licensed port cdl a driver must drive you home. - NO public transportation without another adult. - We recommend that an adult stay with you for 24 hours following discharge. - We also recommend that you do not drive, make important decision, drink alcoholic beverages, or take any drugs that were not prescribed by your health care provider for at least 24 hours after your discharge time. For Pediatric surgeries, we recommend two adults accompany the child home (only one inside the building at this time). Follow any additional instructions given to you from your surgeon. If you or anyone in your household have experienced Covid symptoms in the past week, please notify your surgeon or the nurse liaison at the phone number below for possible testing. Telephone instructions given to _patient and asked if any additional questions and then verbalized understanding. Patient advised to call surgeon office or pre surgery nurse liaison [phone] if any additional questions.
--- NOTE | 2022-01-05 19:47 | PM.IMHP ---
H&P: HPI History of Present Illness Date/Time: 01/05/22 19:47 Chief Complaint: pelvic pain Narrative: 36 yo who presents for robotic assisted hysterectomy for pelvic pain. Pt previously dealt with heavy painful menses. She underwent endometrial ablation in 2018. She started having painful pelvic cramping. Pt presented to the ER for worsening abdominal pain. She was treated for suspected colitis with antibiotics. CT scan revealed and abnormal appearance of the uterus. There appeared to be fluid collections within the uterus suspecting hematometria. Pt has previously undergone left salpingo-oophorectomy due to ectopic and pelvic pain from pelvic adhesions. Review of Systems Cardiovascular: Cardiovascular: Denies chest pain, Denies leg edema, Denies palpitations, Denies dyspnea and Denies dyspnea on exertion Respiratory: Respiratory: Denies cough, Denies dyspnea and Denies dyspnea on exertion Gastrointestinal: Gastrointestinal: Denies abdominal pain, Denies constipation, Denies diarrhea, Denies nausea and Denies vomiting Genitourinary: Genitourinary: Denies hematuria, Denies urinary frequency, Denies dysuria, Denies pelvic pain, Denies urinary incontinence and Denies vaginal discharge Neurologic: Reports system reviewed and no additional complaints, except as documented Psychiatric: Psychiatric: Reports no additional psychiatric complaints Endocrine: Endocrine: Denies palpitations PMFSH Past Medical History Medical History (Updated 01/05/22 @ 19:56 by Raymond George MD) Abnormal bowel habits Anxiety Depression Diarrhea Surgical History Surgical History H/O bilateral salpingectomy History of appendectomy Hx of cholecystectomy S/P trigger finger release Social History Social History Smoking packs per day: 0.5 Smoking cigarettes per day: 10.0 Years smoked: 12 Smoking pack-years: 6.00 Smoking status: Current every day smoker Tobacco type: cigarettes Alcohol intake: current Alcohol use details: social Substance use: never Gender identity (if verbalized by the patient): Female Spiritual care concerns: No Meds Home Medications and Allergies Home Medications Medication Instructions Recorded Confirmed Type albuterol sulfate 90 mcg/actuation 1 - 2 inh inhalation Q4-6H PRN 05/31/20 01/03/22 History aerosol inhaler (ProAir HFA) Shortness Of Breath Or Wheezing ibuprofen 200 mg tablet 600 mg PO Q6H PRN Pain 05/31/20 01/03/22 History melatonin 10 mg tablet 10 mg PO HS PRN Sleep 05/31/20 01/03/22 History simvastatin 40 mg tablet 40 mg PO DAILY 05/31/20 01/03/22 History trazodone 50 mg tablet 50 mg PO HS 05/31/20 01/03/22 History famotidine 40 mg tablet (Pepcid) 40 mg PO DAILY 12/28/21 01/03/22 History fremanezumab-vfrm 225 mg/1.5 mL 225 mg subcut MONTHLY 12/28/21 01/03/22 History subcutaneous auto-injector (Ajovy) hydroxyzine HCl 25 mg tablet 25 mg PO DAILY PRN Sleep 12/28/21 01/03/22 History bupropion HCl 150 mg 24 hr tablet, 150 mg PO HS 01/03/22 01/03/22 History extended release Allergies Allergy/AdvReac Type Severity Reaction Status Date / Time doxycycline Allergy Mild Unknown Verified 12/28/21 13:00 clavulanic acid Allergy Unknown Headache Verified 12/28/21 13:00 Cephalosporins Allergy Hives Verified 01/03/22 08:57 sumatriptan AdvReac Mild SWEAT Verified 12/28/21 13:00 PROFUSELY AND FEEL LIKE HAVING A HEART ATTACK. Exam Const: General: no acute distress Eyes: EOM: EOMs intact bilaterally Neck: Neck: supple Thyroid: thyroid normal Chest: Breast/axilla inspection: normal inspection of the breasts Breast/axilla palpation: normal palpation of the breasts, normal palpation of the axillae and no axillary lymphadenopathy Resp: Effort & Inspection: normal respiratory effort Auscultation: clear to auscultation
--- NOTE | 2022-01-05 19:59 | WPDHPUPDATE1 ---
History and Physical Update Update Date/Time: 01/05/22 19:59 History and Physical has been reviewed, including an updated exam of the patient. There are NO changes in the patient's condition. Risks, benefits, and alternatives have been discussed and questions answered. Patient agrees to proceed with procedure.
[2022-01-06] VITALS (9 sets, daily range): BP systolic 110–135; BP diastolic 68–84; PULSE 68–87; RESP 14–20; TEMP 36.1–36.2; O2SAT 99–100
[2022-01-06] MEDS: ACETAMINOPHEN 500 MG TABLET 1000 MG PO (10:23)
[2022-01-06] MEDS: LACTATED RINGERS 1,000 ML 30 ML IV CONT ×2 (10:50→14:04)
[2022-01-06] MEDS: KETOROLAC 15 MG/ML VIAL (*BKC) IV PUSH (10:51)
--- NOTE | 2022-01-06 11:25 | WPDANESEPPF ---
Anes - Initial Pre Proc Eval Procedure: Operation Date: 01/06/22 12:00 Proposed Procedures p Robotic Assisted Total Laparoscopic Hysterectomy - Raymond George MD Date/Time: 01/06/22 11:25 Surgeon: Raymond George MD Pre Op Diagnosis: pelvic pain , dysmenorrhea Patient Data Age: 36 Gender: F Height: 1.65 m Weight: 63.3 kg Last Vital Signs Temp 36.1 C L 01/06/22 10:29 Pulse 81 01/06/22 10:29 Resp 16 01/06/22 10:29 BP 110/69 01/06/22 10:29 Pulse Ox 99 01/06/22 10:29 O2 Del Method Room Air 01/06/22 10:29 Allergies Allergy/AdvReac Type Severity Reaction Status Date / Time doxycycline Allergy Mild Unknown Verified 01/06/22 10:16 clavulanic acid Allergy Unknown Headache Verified 01/06/22 10:16 Cephalosporins Allergy Hives Verified 01/06/22 10:16 sumatriptan AdvReac Mild SWEAT Verified 01/06/22 10:16 PROFUSELY AND FEEL LIKE HAVING A HEART ATTACK. Home Medications Medication Instructions Recorded Confirmed Type albuterol sulfate 90 mcg/actuation 1 - 2 inh inhalation Q4-6H PRN 05/31/20 01/03/22 History aerosol inhaler (ProAir HFA) Shortness Of Breath Or Wheezing ibuprofen 200 mg tablet 600 mg PO Q6H PRN Pain 05/31/20 01/06/22 History melatonin 10 mg tablet 10 mg PO HS PRN Sleep 05/31/20 01/06/22 History simvastatin 40 mg tablet 40 mg PO DAILY 05/31/20 01/06/22 History trazodone 50 mg tablet 50 mg PO HS 05/31/20 01/06/22 History famotidine 40 mg tablet (Pepcid) 40 mg PO DAILY 12/28/21 01/06/22 History fremanezumab-vfrm 225 mg/1.5 mL 225 mg subcut MONTHLY 12/28/21 01/06/22 History subcutaneous auto-injector (Ajovy) hydroxyzine HCl 25 mg tablet 25 mg PO DAILY PRN Sleep 12/28/21 01/06/22 History bupropion HCl 150 mg 24 hr tablet, 150 mg PO HS 01/03/22 01/06/22 History extended release Patient hx anesthesia problems: none Family hx anesthesia problems: none Results Review: All pre-operative results and documents have been reviewed as part of the pre-operative evaluation. FORMERLY [facility] Past Medical History Medical History Abnormal bowel habits Anxiety Depression Diarrhea Surgical History Surgical History H/O bilateral salpingectomy History of appendectomy Hx of cholecystectomy S/P trigger finger release Social History Social History Smoking packs per day: 0.5 Smoking cigarettes per day: 10.0 Years smoked: 12 Smoking pack-years: 6.00 Smoking status: Current every day smoker Tobacco type: cigarettes Alcohol intake: current Alcohol use details: social Substance use: never Living arrangements: with family Gender identity (if verbalized by the patient): Female Spiritual care concerns: No Anes - Eval Final PreProcedure Day of Procedure 01/06/22 11:25 Patient weight: normal Heart: regular rate and rhythm Lungs: clear to auscultation Airway: Mallampati scale class II Neurological: alert and oriented Last oral intake: >/= 8 hours ASA classification: III Emergent: yes Anesthetic plan: proceed Anesthesia type and monitoring: general ETT and standard monitoring Results Review: All pre-operative results and documents have been reviewed as part of the pre-operative evaluation. Informed Consent: The patient's anesthetic plan and its attendant risks and benefits were discussed with the patient/family/POA. Questions were solicited and answers provided to the satisfaction of the patient/family/POA.
[2022-01-06] MEDS: CLINDAMYCIN 900 MG/D5W 50 ML 900 MG/50 ML PIGGYBACK 50 MG IVPB (12:26)
[2022-01-06] MEDS: LIDO 1%/EPINEPHRINE/PF 1:200,000 30 ML VIAL INFILTRATE (13:06)
--- NOTE | 2022-01-06 13:52 | W.PM.PROC2 ---
Procedure Note - Detailed Date of Procedure 01/06/22 Pre-op Diagnosis pelvic pain Post-op Diagnosis Same Procedure Performed robotic assisted total laparoscopic hysterectomy 15 minutes of lysis of adhesions Surgeon Raymond George MD Anesthesia General Indications pelvic pain s/p endometrial ablation Findings bilateral fallopian tubes surgically absent, left ovary surgically absent. Normal appearing uterus and right ovary. Omental adhesions of the large bowel to the left pelvic side wall Description of Procedure After the patient was appropriately consented she was taken to the operating room where she was transferred to the table in a dorsal supine position. General anesthesia was then induced with endotracheal intubation. The patient was transferred to a dorsal lithotomy position using adjustable yellow-fin stirrups. Her position was adjusted for appropriate support of her lower back and lower extremities. The patient was prepped and draped. A transurethral carballo catheter was place. The cervix was sequentially dilated and a MIHIR uterine manipulator placed in typical fashion about a 3cm KARTHIKEYAN ring. Gloves were changed. After confirmation of a functioning orogastric tube, lidocaine was injected at Escalona's point in the LUQ and a 8mm incision was made. A 5mm Optiview trocar was then inserted into the abdominal cavity under direct visualization and done so without complication. The abdomen was then insufflated with approximately 2-3L of CO2 establishing a pneumoperitoneum and the patient was placed in Trendelenburg position. Just above the umbilicus in the midline, a 8 mm incision made after injection of lidocaine and a 8 mm bladeless trocar advanced into the abdominal cavity under direct visualization without incident. We subsequently placed two robotic ports in a similar fashion, one in the left mid-quadrant and one in the right, 10cm lateral to the midline port. The robot was then docked. Pelvic survey was performed and the above findings were noted. The omental adhesions were taken down with monopolar scissors to visualize the left ovarian fossa and round ligament. Attention was turned to the left pelvis. The left utero-ovarian ligament was desiccated and transected, as was the round ligament. The posterior peritoneal leaf was taken down to the KARTHIKEYAN ring. The anterior leaf was developed as well as the start of the bladder flap. The left uterine artery was then skeletonized and desiccated and transected just above the level of the KARTHIKEYAN ring. Attention was turned to the right pelvis. The right round ligament was transected toward the uterus sparing the ovary. The utero-ovarian ligament was desiccated and transected. The posterior peritoneal leaf was taken down to the KARTHIKEYAN ring. The anterior leaf was developed as well as the start of the bladder flap. The right uterine artery was then skeletonized and desiccated and transected just above the level of the KARTHIKEYAN ring. The bladder was then further dissected inferiorly over the level of the KARTHIKEYAN ring. A circumferential colpotomy was made using monopolar current. The uterus, cervix, bilateral tubes were then delivered transvaginally. I then placed a single figure of eight suture of 0-vicryl in the left corner of the vaginal cuff. I then re-approximated the colpotomy with a running #1 PDO Quill suture in 2 layers. Following this dissection, the abdomen and pelvis were copiously irrigated and all surgical sites found to be hemostatic. Skin sites were reapproximated with 4-0 Vicryl in a subcuticular fashion. Steri-Strips were placed. The patient tolerated the procedure well. Sponge, needle and instrument counts were correct x 2 and the patient was taken to recovery in stable condition. Clindamycin and Gentamicin were given for antimicrobial prophylaxis. The patient had SCD's on for VTE prophylaxis during the entire procedure. Estimated Blood Loss 50 Pathology Yes (cervix and uterus) Condition Stable Disposition
[2022-01-06] MEDS: ONDANSETRON INJ 4 MG/2 ML VIAL IV PUSH (14:27)
[2022-01-06] MEDS: fentaNYL CITRATE INJ (*CRX) 100 MCG/2 ML VIAL 25 MCG IV PUSH ×5 (14:28→15:48)
[2022-01-06] MEDS: SCOPOLAMINE 1.5 MG PATCH TRANSDERM (15:12)
[2022-01-06] MEDS: diphenhydrAMINE HCl INJ 50 MG/ML VIAL 25 MG IV PUSH (15:12)
[2022-01-06] MEDS: oxyCODONE HCL (*CRX) 5 MG TAB IR PO (15:48)
--- NOTE | 2022-01-06 17:21 | SUR.PHASEII ---
PT URINATED WITHOUT ISSUE AT 1510. PT WAS DISCHARGED HOME WITH .
== END 2022-01-06 16:10 | disposition home or self-care (01) ==
PROVIDERS: PCP Internal Medicine; Visit Provider Student in an Organized Health Care Education/Training Program
PROC: (CPT 58571; principal; 2022-01-06 12:00)
DX: R10.2 Pelvic and perineal pain (principal); N73.6 Female pelvic peritoneal adhesions (postinfective); N80.2 Endometriosis of fallopian tube; F41.8 Other specified anxiety disorders; F17.210 Nicotine dependence, cigarettes, uncomplicated
CPT/HCPCS: 58571; S2900; 88307; A9270; J1100; J1200; J1580; J1885; J2250; J2405; J2704; J2710; J3010; J7030; J7120

== ENCOUNTER 2023-03-13 21:04 | Emergency (ER) | payer OTHER, SELFPAY ==
--- NOTE | ~2023-03-13 | XR_ITS ---
EXAM: XR soft tissue neck DATE: 03/13/2023 22:42 HISTORY: dysphagia, foreign body sensation . COMPARISON: None available. FINDINGS: Normal mineralization. No fracture or dislocation. Normal airway. Normal airway soft tissu es. Remaining tissues within normal limits. No radiopaque foreign body IMPRESSION: Normal soft tissue neck radiograph findings. Reviewed, dictated and finalized at location K.
[2023-03-13 21:08] VITALS: BP 119/78; PULSE 70; RESP 16; TEMP 36.4; O2SAT 100
--- NOTE | 2023-03-13 22:44 | ED.GENADULT ---
HPI - General Adult General Chief complaint: Allergic Reaction Stated complaint: allergic reaction, throat swelling Time Seen by Provider: 03/13/23 21:30 Source: patient Mode of arrival: ambulatory Limitations: no limitations History of Present Illness HPI narrative: This is a 37-year-old female who presents to the ED with chief complaint of dysphagia for the past 3 days. Patient states that she has difficulty with swallowing but has been able to tolerate foods and liquids. Denies odynophagia. She states she has a history of a goiter but has never had problems with this in the past. Denies fevers, chills, nausea, vomiting. Related Data Home Medications Medication Instructions Recorded Confirmed albuterol sulfate 90 mcg/actuation 1 - 2 inh inhalation Q4-6H PRN 05/31/20 01/27/22 aerosol inhaler (ProAir HFA) Shortness Of Breath Or Wheezing melatonin 10 mg tablet 10 mg PO HS PRN Sleep 05/31/20 01/27/22 simvastatin 40 mg tablet 40 mg PO DAILY 05/31/20 01/27/22 trazodone 50 mg tablet 50 mg PO HS 05/31/20 01/27/22 famotidine 40 mg tablet (Pepcid) 40 mg PO DAILY PRN Indigestion 12/28/21 01/27/22 fremanezumab-vfrm 225 mg/1.5 mL 225 mg subcut MONTHLY 12/28/21 01/27/22 subcutaneous auto-injector (Ajovy) hydroxyzine HCl 25 mg tablet 25 mg PO DAILY PRN Sleep 12/28/21 01/27/22 bupropion HCl 150 mg 24 hr tablet, 150 mg PO HS 01/03/22 01/27/22 extended release Allergies Allergy/AdvReac Type Severity Reaction Status Date / Time doxycycline Allergy Mild Unknown Verified 03/13/23 21:31 clavulanic acid Allergy Unknown Headache Verified 03/13/23 21:31 Cephalosporins Allergy Hives Verified 03/13/23 21:31 sumatriptan AdvReac Mild SWEAT Verified 03/13/23 21:31 PROFUSELY AND FEEL LIKE HAVING A HEART ATTACK. FOR[facility]LY [facility] Past Medical History Medical History Abnormal bowel habits Anxiety Depression Diarrhea Surgical History Surgical History H/O bilateral salpingectomy History of appendectomy Hx of cholecystectomy S/P trigger finger release Social History Social History Smoking packs per day: 0.5 Smoking cigarettes per day: 10.0 Years smoked: 12 Smoking pack-years: 6.00 Smoking status: Current every day smoker Tobacco type: cigarettes Alcohol intake: current Alcohol use details: 3 drinks monthly Substance use: never Living arrangements: with family Gender identity (if verbalized by the patient): Female Spiritual care concerns: No Exam Narrative: GENERAL: Well-appearing, well-nourished, and in no acute distress. HEAD: Normocephalic, atraumatic. EYES: PERRLA and EOMI. ENT: Nares clear, no rhinorrhea or epistaxis. Mucous membranes moist. Oropharynx without tonsillar hypertrophy exudate or other lesions. No lymphadenopathy. Tolerating secretions. She is able to swallow. NECK: Supple. No adenopathy or masses. CHEST: No respiratory distress. Clear to auscultation. No wheezes rales or rhonchi HEART: Regular rate and rhythm. No murmur heard. Normal peripheral pulses. ABDOMEN: Soft, nontender, nondistended, normal active bowel sounds. MSK: Normal range of motion. No edema. SKIN: Warm, dry, no rash. NEURO: Alert and oriented x3. No focal deficits. PSYCH: Normal mood and affect. Course Vital Signs Vital signs: Vital Signs Temperature 97.6 F 03/13/23 21:08 Pulse Rate 70 03/13/23 21:08 Respiratory Rate 16 03/13/23 21:08 Blood Pressure 119/78 03/13/23 21:08 Pulse Oximetry 100 03/13/23 21:08 Oxygen Delivery Room Air 03/13/23 21:08 Temperature 97.6 F 03/13/23 21:08 Pulse Rate 70 03/13/23 21:08 Respiratory Rate 16 03/13/23 21:08 Blood Pressure 119/78 03/13/23 21:08 Pulse Oximetry 100 03/13/23 21:08 Oxygen Delivery Room Air 03/13/23 21:08 Medical Decision M
== END 2023-03-13 23:05 | disposition home or self-care (01) ==
PROVIDERS: Emergency Provider Physician Assistant; PCP Internal Medicine
DX: R13.10 Dysphagia, unspecified (principal); F41.9 Anxiety disorder, unspecified; F32.A Depression, unspecified; Z90.79 Acquired absence of other genital organ(s); Z90.49 Acquired absence of other specified parts of digestive tract; F17.210 Nicotine dependence, cigarettes, uncomplicated
CPT/HCPCS: 70360; 99283

== ENCOUNTER 2023-05-06 23:17 | Emergency (ER) | payer OTHER, SELFPAY ==
[2023-05-06 23:29] VITALS: BP 114/76; PULSE 75; RESP 18; TEMP 36.4; O2SAT 100
[2023-05-06 23:51] LABS: Glucose Point of Care 103 mg/dl (65-105)
[2023-05-07 02:30] VITALS: BP 120/79; PULSE 89; RESP 30; O2SAT 99
--- NOTE | 2023-05-07 02:59 | ED.NAVMDI ---
HPI - Nausea/Vomiting/Diarrhea General Chief complaint: Nausea/Vomiting/Diarrhea Stated complaint: n/v, dizzy Time Seen by Provider: 05/07/23 02:38 History of Present Illness HPI Narrative: Patient is a 37-year-old female presenting with nausea and vomiting. States that she has been having episodes of lightheadedness/dizziness associated with nausea and vomiting. States that it happened earlier this week but it resolved on its own. Today her symptoms have resolved and she states that she vomited a large amount. States that she feels okay if she remains laying down but if she stands up her symptoms return. She denies any pain. No chest pain, abdominal pain, dysuria. No shortness of breath or cough. No fevers or chills. No constipation or diarrhea. No numbness or weakness, vision changes. Related Data Home Medications Medication Instructions Recorded Confirmed albuterol sulfate 90 mcg/actuation 1 - 2 inh inhalation Q4-6H PRN 05/31/20 01/27/22 aerosol inhaler (ProAir HFA) Shortness Of Breath Or Wheezing melatonin 10 mg tablet 10 mg PO HS PRN Sleep 05/31/20 01/27/22 simvastatin 40 mg tablet 40 mg PO DAILY 05/31/20 01/27/22 trazodone 50 mg tablet 50 mg PO HS 05/31/20 01/27/22 famotidine 40 mg tablet (Pepcid) 40 mg PO DAILY PRN Indigestion 12/28/21 01/27/22 fremanezumab-vfrm 225 mg/1.5 mL 225 mg subcut MONTHLY 12/28/21 01/27/22 subcutaneous auto-injector (Ajovy) hydroxyzine HCl 25 mg tablet 25 mg PO DAILY PRN Sleep 12/28/21 01/27/22 bupropion HCl 150 mg 24 hr tablet, 150 mg PO HS 01/03/22 01/27/22 extended release Allergies Allergy/AdvReac Type Severity Reaction Status Date / Time doxycycline Allergy Mild Unknown Verified 05/06/23 23:36 clavulanic acid Allergy Unknown Headache Verified 05/06/23 23:36 Cephalosporins Allergy Hives Verified 05/06/23 23:36 sumatriptan AdvReac Mild SWEAT Verified 05/06/23 23:36 PROFUSELY AND FEEL LIKE HAVING A HEART ATTACK. Review of Systems Review of Systems: All systems reviewed & are unremarkable except as noted in HPI and below PMFSH Past Medical History Medical History Abnormal bowel habits Anxiety Depression Diarrhea Surgical History Surgical History H/O bilateral salpingectomy History of appendectomy Hx of cholecystectomy S/P trigger finger release Social History Social History Smoking packs per day: 0.5 Smoking cigarettes per day: 10.0 Years smoked: 12 Smoking pack-years: 6.00 Smoking status: Current every day smoker Tobacco type: cigarettes Alcohol intake: current Alcohol use details: 3 drinks monthly Substance use: never Living arrangements: with family Gender identity (if verbalized by the patient): Female Spiritual care concerns: No Exam Narrative: GENERAL: Well-appearing and in no acute distress. HEAD: Normocephalic, atraumatic. EYES: PERRLA and EOMI. ENT: Mucous membranes moist. NECK: Supple. CHEST: Clear to auscultation. No respiratory distress. HEART: Regular rate and rhythm ABDOMEN: Soft, nontender, nondistended EXTREMITIES: Normal range of motion. No edema. SKIN: Warm, dry, no rash. NEURO: No focal deficits. Alert and oriented x3. PSYCH: Normal mood and affect. Course Vital Signs Vital signs: Vital Signs Temperature 97.6 F 05/06/23 23:29 Pulse Rate 75 05/06/23 23:29 Respiratory Rate 18 05/06/23 23:29 Blood Pressure 114/76 05/06/23 23:29 Pulse Oximetry 100 05/06/23 23:29 Oxygen Delivery Room Air 05/06/23 23:29 Temperature 97.6 F 05/06/23 23:29 Pulse Rate 80 05/07/23 06:10 Respiratory Rate 19 05/07/23 06:10 Blood Pressure 120/74 05/07/23 06:10 Pulse Oximetry 99 05/07/23 06:10 Oxygen Delivery Room Air 05/06/23 23:29 MDM - Nausea/Vomiting/Diarrhea MDM An[facility]
[2023-05-07 03:30] VITALS: BP 120/75; PULSE 83; RESP 20; O2SAT 100
[2023-05-07] MEDS: SODIUM CHLORIDE 0.9% IV 1,000 ML 999 ML IV CONT (03:56)
[2023-05-07] MEDS: FAMOTIDINE 20 MG/2 ML VIAL IV PUSH (03:58)
[2023-05-07] MEDS: ONDANSETRON INJ 4 MG/2 ML VIAL IV PUSH (03:58)
[2023-05-07 04:26] LABS: Basophils Percent Auto 0.3 % (0.2-1.2); Eosinophils Percent Auto 0.2 % (0-4.4); Hemoglobin 13.9 g/dL (12.0-15.0); Immature Granulocyte Absolute 0.03 K/mm3 (0.00-0.031); Immature Granulocyte Percent A 0.3 % (0-0.5); Lymphocytes Absolute Auto 2.35 K/mm3 (0.9-3.2); Mean Corpuscular HGB Conc 33.1 g/dl (32-36); Mean Corpuscular Hemoglobin 31.2 pg (26-34); Mean Corpuscular Volume 94.4 fl (80-100); Mean Platelet Volume 10.9 fl (7.4-10.4); Monocytes Absolute Auto 0.5 K/mm3 (0.1-0.6); Monocytes Percent Auto 4.5 % (2.6-8.5); Neutrophils Absolute Auto 8.3 K/mm3 (1.3-6.7); Neutrophils Percent Auto 73.7 % (45.5-73.1); Platelet Count Result 220 k/mm3 (150-375); Red Blood Count 4.45 M/mm3 (4.2-5.4); Red Cell Distribution Width 11.7 % (11.5-14.5); White Blood Count 11.2 K/mm3 (4.5-10.0)
[2023-05-07 04:30] VITALS: BP 102/74; PULSE 84; RESP 16; O2SAT 100
[2023-05-07 04:37] LABS: Alanine Aminotransferase 113 U/L (6-35); Albumin Level 4.1 g/dL (3.5-5.1); Alkaline Phosphatase 78 U/L (38-126); Anion Gap 7 mmol/L (8-16); Aspartate Amino Transferase 63 U/L (14-36); Bilirubin,Total 0.6 mg/dL (0.2-1.3); Blood Urea Nitrogen 9 mg/dL (7-17); Calcium 8.8 mg/dL (8.4-10.2); Carbon Dioxide 25 mmol/L (22-30); Chloride 106 mmol/L (98-107); Estimated CRCL calculation 121 ml/min; Estimated Glomerular Filt Rate > 60; Glucose 103 mg/dL (65-110); Lipase 25 U/L (23-300); Potassium 3.9 mmol/L (3.4-5.0); Sodium 138 mmol/L (137-145)
[2023-05-07 04:40] LABS: Appearance Urine Clear (Clear); Bacteria Urine Rare /hpf; Bilirubin Urine Negative (Negative); Blood Urine Negative (Negative); Color Urine Yellow (Yellow); Glucose Urine UA Negative (Negative); Ketones Urine Trace mg/dL (Negative); Leukocyte Esterase Ur Negative LEU/UL (Negative); Nitrate Urine Negative (Negative); Non Pathogenic Casts 0-2; Protein Urine Trace mg/dL (Negative); Specific Grav Ur 1.024 (1.001-1.035); Squamous Epithelial Cell Urine Few /hpf (Few); WBC Urine 0-5 /hpf
[2023-05-07 04:41] LABS: Need Manual Microscopic Reviewed
[2023-05-07 04:43] LABS: Add Urine Microscopic? YES
[2023-05-07 04:44] LABS: Pregnancy On Board Control Positive; Urine Pregnancy Test Negative
[2023-05-07 06:10] VITALS: BP 120/74; PULSE 80; RESP 19; O2SAT 99
== END 2023-05-07 06:10 | disposition home or self-care (01) ==
PROVIDERS: Emergency Provider Emergency Medicine; PCP Internal Medicine
DX: R11.2 Nausea with vomiting, unspecified (principal); R42 Dizziness and giddiness; F41.9 Anxiety disorder, unspecified; F32.A Depression, unspecified; F17.210 Nicotine dependence, cigarettes, uncomplicated; Z90.79 Acquired absence of other genital organ(s); Z90.49 Acquired absence of other specified parts of digestive tract
CPT/HCPCS: 36415; 80053; 81001; 81025; 82948; 83690; 85025; 96361; 96374; 96375; 99284; J2405; J7030

== ENCOUNTER 2023-08-29 11:45 | Emergency (ER) | payer OTHER, SELFPAY ==
--- NOTE | ~2023-08-29 | XR_ITS ---
EXAMINATION: XR foot RT min 3V DATE: 08/29/2023 12:21 INDICATION: Dorsal right foot pain TECHNIQUE: Dorsoplantar, two oblique and lateral views of the right foot were obtained. COMPARISON: None. FINDINGS: Alignment is normal. No fracture. 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 There i s an accessory os intermetatarseum situated dorsally between the base of the first and second metatar sals. This appears free standing distally but with a nonuniform articulation proximally with the medi al cuneiform. Soft tissues are unremarkable. IMPRESSION: 1. 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 Reviewed, dictated and finalized at location A. REGISTRAR IMPRESSION: 1. Normal variant os intermetatarseum which articulates with the medial cuneifo rm and which can be a source of dorsal foot pain.
--- NOTE | 2023-08-29 11:57 | ED.GENADULT ---
HPI - General Adult General Chief complaint: Extremity Problem,Nontraumatic Stated complaint: lower rt extremity injury Source: patient, RN notes reviewed and old records reviewed Mode of arrival: ambulatory Limitations: no limitations History of Present Illness HPI narrative: 37-year-old female presents to [facility] with complaints right foot pain that started 3-4 weeks ago. Patient states improved but has returned. Patient states is worried she broke foot, even though patient denies injury. 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 Patient has not tried anything for pain. MD complaint: foot pain Onset (ago): week(s) (2-3) Related Data Home Medications Medication Instructions Recorded Confirmed melatonin 10 mg tablet 10 mg PO HS PRN Sleep 05/31/20 08/29/23 simvastatin 40 mg tablet 40 mg PO DAILY 05/31/20 08/29/23 trazodone 50 mg tablet 50 mg PO HS 05/31/20 08/29/23 famotidine 40 mg tablet (Pepcid) 40 mg PO DAILY PRN Indigestion 12/28/21 08/29/23 fremanezumab-vfrm 225 mg/1.5 mL 225 mg subcut MONTHLY 12/28/21 08/29/23 subcutaneous auto-injector (Ajovy) hydroxyzine HCl 25 mg tablet 25 mg PO DAILY PRN Sleep 12/28/21 08/29/23 bupropion HCl 150 mg 24 hr tablet, 300 mg PO HS 01/03/22 08/29/23 extended release paroxetine HCl 10 mg tablet 10 mg PO DAILY 08/29/23 08/29/23 Allergies Allergy/AdvReac Type Severity Reaction Status Date / Time doxycycline Allergy Mild Hives Verified 08/29/23 11:59 clavulanic acid AdvReac Intermediate Headache Verified 08/29/23 11:59 Cephalosporins AdvReac Mild Hives Verified 08/29/23 11:59 sumatriptan AdvReac Mild SWEAT Verified 08/29/23 11:59 PROFUSELY AND FEEL LIKE HAVING A HEART ATTACK. ciprofloxacin [From Cipro] AdvReac Unknown Other Verified 08/29/23 12:15 Review of Systems Constitutional: Constitutional: Reports no additional constitutional complaints, Denies body ache(s), Denies chills, Denies fatigue, Denies fever(s) and Denies headache(s) Eyes: Eyes: Reports no additional eye complaints and Denies blurry vision ENT: Reports system reviewed and no additional complaints, except as documented, Denies vertigo, Denies dizziness, Denies ear discharge, Denies otalgia, Denies facial pain, Denies headache(s), Denies nasal congestion, Denies nasal discharge, Denies sinus pain, Denies sinus pressure and Denies sore throat Cardiovascular: Cardiovascular: Reports no additional cardiovascular complaints, Denies chest pain, Denies chest pain at rest, Denies rapid heart rate and Denies dyspnea Respiratory: Respiratory: Reports no additional respiratory complaints, Denies chest congestion, Denies cough, Denies pain on inspiration, Denies pain with cough and Denies dyspnea Gastrointestinal: Gastrointestinal: Denies abdominal pain, Denies diarrhea, Denies nausea and Denies vomiting Musculoskeletal: Comments: Right foot pain Integumentary/Breasts: Skin/Breast: Denies rash Neurologic: Reports system reviewed and no additional complaints, except as documented, Denies vertigo, Denies dizziness and Denies headache(s) Endocrine: Endocrine: Denies fatigue PMFSH Past Medical History Medical History Abnormal bowel habits Anxiety Depression Diarrhea Surgical History Surgical History H/O bilateral salpingectomy History of appendectomy Hx of cholecystectomy S/P trigger finger release Social History Social History Smoking packs per day: 0.5 Smoking cigarettes per day: 10.0 Years smoked: 12 Smoking pack-years: 6.00 Smoking status: Current every day smoker Tobacco type: cigarettes Alcohol intake: current Alcohol use details: 3 drinks monthly Substance use: never Living arrangements: with family Gender identity (if verbalized by the patient): Female Spiritual
[2023-08-29 12:09] VITALS: BP 133/92; PULSE 85; RESP 16; TEMP 36.2; O2SAT 100
== END 2023-08-29 12:40 | disposition home or self-care (01) ==
PROVIDERS: Emergency Provider Registered Nurse; PCP Internal Medicine
DX: M79.671 Pain in right foot (principal); F17.210 Nicotine dependence, cigarettes, uncomplicated; F41.9 Anxiety disorder, unspecified; F32.A Depression, unspecified
CPT/HCPCS: 73630; 99213; G0463